=== PATIENT | male | born 1975 | race Caucasian/White ===

== ENCOUNTER → 2023-03-01 12:49 | Outpatient (CLI) | payer BC, SELFPAY ==
--- NOTE | ~2023-03-01 | MR_ITS ---
MRI of the brain Clinical History: Headache Technique: Axial and sagittal T1-weighted images were acquired. These were followed by axial T2-weigh erik, diffusion weighted, gradient, and FLAIR images. Following intravenous administration of 15 cc Mu ltiHance gadolinium, T1-weighted fat-sat imaging was performed in the axial and coronal planes. Findings: There is no abnormal signal in the brain parenchyma. No acute infarct, intracranial hemorrh age or mass lesion. Ventricles and subarachnoid spaces are unremarkable. Orbits are unremarkable. Paranasal sinuses and m astoid air cells are clear. Major intracranial flow voids are intact. Sagittal midline structures are intact. No abnormal postcontrast enhancement identified. IMPRESSION: Unremarkable exam. Reviewed, dictated and finalized at location M. IMPRESSION: Unremarkable exam.
== END ==
PROVIDERS: PCP Internal Medicine; Visit Provider Clinical Nurse Specialist
DX: R51.9 Headache, unspecified (principal)
CPT/HCPCS: 70553; A9577

== ENCOUNTER 2023-05-14 00:39 | Day surgery (SDC) | payer BC, SELFPAY ==
[2023-05-04 15:44] VITALS: BMI 25.2
--- NOTE | 2023-05-12 09:15 | PM.HPGS ---
History of Present Illness History of Present Illness Consent: Risks, benefits, and alternatives have been discussed and questions answered. Patient agrees to proceed with procedure. Chief complaint: neoplasm screening Narrative: Arturo Flores is a 48 year old male Referred for colon cancer screening. Review of Systems Review of Systems: All systems reviewed & are unremarkable except as noted in HPI and below PMFSH Past Medical History Medical History History of frequent headaches Family History Family History Father Depression Anxiety Son Depression Anxiety Grandparent Brain cancer Mother Hypertension Social History Social History Smoking status: Never smoker Alcohol intake: never Substance use type: does not use Lack of Transportation: No Lack of Food: Never True Current Housing: I Have Housing Concerned About Future Housing: No Difficulty Paying Gas/Electric Bills: No Difficulty Paying for Meds: No Currently Unemployed: No Education: Master's Degree or Higher Difficulty w/ Childcare or Family Care: No Living arrangements: with family Occupation/Education: occupation 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 Spiritual care concerns: No Meds Home Medications and Allergies Home Medications Medication Instructions Recorded Confirmed Type gabapentin 100 mg capsule 200 mg PO HS 04/25/23 05/04/23 History tadalafil 20 mg tablet 20 mg PO DAILY PRN Sexual Activity 05/04/23 05/04/23 History Allergies Allergy/AdvReac Type Severity Reaction Status Date / Time No Known Allergies Allergy Verified 05/14/23 07:39 Exam Resp: Auscultation: clear to auscultation bilaterally Cardio: Rate: regular rate Rhythm: regular rhythm GI: GI Palp: Yes Soft to palpation and No Tenderness to palpation present (GI) Assessment and Plan Assessment and plan (1) Screening for colon cancer: Code(s): Z12.11 - Encounter for screening for malignant neoplasm of colon Status: Acute Assessment and Plan: Colonoscopy with possible biopsy or polypectomy or cautery or injection of substances.
[2023-05-14 07:40] VITALS: BP 121/89; PULSE 80; RESP 18; TEMP 36.3; O2SAT 99
[2023-05-14] MEDS: LACTATED RINGERS 1,000 ML 150 ML IV CONT (07:50)
--- NOTE | 2023-05-14 07:52 | WPDANESEPPF ---
Anes - Initial Pre Proc Eval Procedure: Operation Date: 05/14/23 09:00 Proposed Procedures p Screening Colonoscopy - Kelby Frzaier MD Date/Time: 05/14/23 07:52 Surgeon: Kelby Frazier MD Pre Op Diagnosis: neoplasm screening Patient Data Age: 48 Gender: M Height: 1.78 m Weight: 73.7 kg Last Vital Signs Temp 97.3 F L 05/14/23 07:40 Pulse 80 05/14/23 07:40 Resp 18 05/14/23 07:40 BP 121/89 05/14/23 07:40 Pulse Ox 99 05/14/23 07:40 O2 Del Method Room Air 05/14/23 07:40 Allergies Allergy/AdvReac Type Severity Reaction Status Date / Time No Known Allergies Allergy Verified 05/14/23 07:39 Home Medications Medication Instructions Recorded Confirmed Type gabapentin 100 mg capsule 200 mg PO HS 04/25/23 05/04/23 History tadalafil 20 mg tablet 20 mg PO DAILY PRN Sexual Activity 05/04/23 05/04/23 History Patient hx anesthesia problems: none Family hx anesthesia problems: none Results Review: All pre-operative results and documents have been reviewed as part of the pre-operative evaluation. [facility], [facility] Past Medical History Medical History History of frequent headaches Family History Family History Father Depression Anxiety Son Depression Anxiety Grandparent Brain cancer Mother Hypertension Social History Social History Smoking status: Never smoker Alcohol intake: never Substance use type: does not use Lack of Transportation: No Lack of Food: Never True Current Housing: I Have Housing Concerned About Future Housing: No Difficulty Paying Gas/Electric Bills: No Difficulty Paying for Meds: No Currently Unemployed: No Education: Master's Degree or Higher Difficulty w/ Childcare or Family Care: No Living arrangements: with family Occupation/Education: occupation 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 Informed Consent: The patient's anesthetic plan and its attendant risks and benefits were discussed with the patient/family/POA. Questions were solicited and answers provided to the satisfaction of the patient/family/POA.
[2023-05-14 08:52] VITALS: BP 114/77; PULSE 81; RESP 20; O2SAT 97
[2023-05-14 09:02] VITALS: BP 117/77; PULSE 77; RESP 16; O2SAT 98
[2023-05-14 09:12] VITALS: BP 121/90; PULSE 68; RESP 18; O2SAT 100
== END 2023-05-14 09:20 | disposition home or self-care (01) ==
PROVIDERS: PCP Internal Medicine; Visit Provider Internal Medicine Gastroenterology
PROC: 0DJD8ZZ Inspection of Lower Intestinal Tract, Via Natural or Artificial Opening Endoscopic (ICD-10-PCS; CPT 45378; principal; 2023-05-14 09:00)
DX: Z12.11 Encounter for screening for malignant neoplasm of colon (principal)
CPT/HCPCS: 45378; J2001; J2704; J7120